=== PATIENT | female | born 1980 | race African-American/Black ===

== ENCOUNTER → 2021-01-03 10:39 | Outpatient (CLI) | payer OTHER, SELFPAY ==
--- NOTE | ~2021-01-03 | US_ITS ---
EXAMINATION: US pelvic complete w TV EXAM DATE: 01/03/2021 13:47 INDICATION: Right lower quadrant pain. TECHNIQUE: Pelvic transabdominal and transvaginal sonogram was performed. There are multiple graysca le and Doppler images available for interpretation. There is no prior study for comparison. FINDINGS: Uterus measures 7.0 x 3.6 x 3.9 cm, with IUD centrally located inside the endometrial cavi ty. Focal posterior myometrial region measuring 1.5 cm, fibroid. Endometrial stripe measures 3 mm, wi thin normal limits. There is no free pelvic fluid. Right adnexa: The ovary measures 1.3 x 1.6 x 1.2 cm and is morphologically normal. Ovarian vascular f low confirmed. Left adnexa: The ovary measures 1.8 x 2.1 x 2.2 cm and is morphologically normal. Ovarian vascular fl ow confirmed. IMPRESSION: Unremarkable pelvic ultrasound exam. Reviewed, dictated and finalized at location A.
--- NOTE | ~2021-01-03 | US_ITS ---
EXAMINATION: US abdomen complete EXAM DATE: 01/03/2021 11:35 INDICATION: Right lower quadrant pain. TECHNIQUE: Multiple grayscale and Doppler images of the complete abdomen were obtained (by a technolo gist who performed the scan) and subsequently reviewed. There is no prior study for comparison. FINDINGS: The abdominal aorta is normal in caliber. Visualized portion IVC is patent. The pancreatic head a nd body are normal in appearance. The pancreatic tail is not visualized. The liver has normal echogenicity and contour. There are no focal liver lesions identified. There is no evidence of intrahepatic biliary duct dilation. Portal venous flow was seen in the hepatopedal , normal direction and has normal Doppler waveform. Common bile duct measures 4 mm, which is normal. The gallbladder wall is normal in thickness, with ex pected amount of distention. No sonographic evidence of pericholecystic fluid. There is no cholelit hiases. Technologist performing exam reports patient did not demonstrate sonographic Martinez's sign. Please note that this sign is less reliable in patients who have received pain medication. Right kidney: There is normal contour and echogenicity. It measures 7.0 x 3.7 x 4.1 centimeters. T here are no focal renal lesions identified. There is no hydronephrosis. Left kidney: There is normal contour and echogenicity. It measures 8.2 x 5.0 x 3.9 centimeters. Th ere are no focal renal lesions identified. There is no hydronephrosis. The spleen measures 7.1 centimeters and is morphologically normal. IMPRESSION: 1. Unremarkable complete abdominal ultrasound exam. Reviewed, dictated and finalized at location A.
== END ==
PROVIDERS: PCP Emergency Medicine; Visit Provider Emergency Medicine
DX: R10.9 Unspecified abdominal pain (principal)
CPT/HCPCS: 76700; 76830; 76856

== ENCOUNTER → 2021-02-06 10:26 | Outpatient (CLI) | payer OTHER, SELFPAY ==
--- NOTE | ~2021-02-06 | XR_ITS ---
XR UGIAC w barium swallow DATE: 02/06/2021 11:54 INDICATION: Gastroesophageal reflux, esophagitis, postprandial cough. Patient has chest pain when eat ing, difficulty getting food to go down, food sticking. Has switched to primarily liquid food. TECHNIQUE: Rapid sequence spot radiographs and fluoroscopy were performed during swallowing. Air cont rast upper gastrointestinal series. DAP: 18.472 Fluoroscopy time: 2.8 minutes 184 images COMPARISON: None FINDINGS: Normal deglutition and esophageal peristalsis. There is a small sliding hiatal hernia with shots kidneys raising, which accounts for the patient's s ymptoms of food sticking. Consider endoscopic visualization and dilatation as clinically appropriate. Mild to moderate gastroesophageal reflux was observed. No stricture, mucosal fold thickening, erosion, ulceration or intraluminal mass lesion of the esophag us, stomach or duodenum is noted otherwise. The proximal small bowel mucosal pattern appears normal. IMPRESSION: Small sliding hiatal hernia with Schatzki's ring, which correlates with the patient's cli nical presentation of difficulty with food sticking Gastroesophageal reflux Reviewed, dictated and finalized at Location A. Reviewed, dictated and finalized at location B. IMPRESSION: Small sliding hiatal hernia with Schatzki's ring, which correlates with the patient's clinical presentation of difficulty with food sticking Gastroesophageal reflux
== END ==
PROVIDERS: PCP Emergency Medicine; Visit Provider Emergency Medicine
DX: K21.9 Gastro-esophageal reflux disease without esophagitis (principal); K44.9 Diaphragmatic hernia without obstruction or gangrene
CPT/HCPCS: 74246

== ENCOUNTER 2021-03-24 02:16 | Day surgery (SDC) | payer OTHER, SELFPAY ==
[2021-03-20 13:09] VITALS: BMI 25.4
[2021-03-24 09:20] VITALS: BP 113/77; PULSE 100; RESP 16; TEMP 36.8; O2SAT 100
[2021-03-24] MEDS: LACTATED RINGERS 1,000 ML 150 ML IV CONT (09:35)
--- NOTE | 2021-03-24 10:07 | WPDANESEPPF ---
Anes - Initial Pre Proc Eval Procedure: Operation Date: 03/24/21 10:00 Proposed Procedures p Esophagogastroduodenoscopy - Faheem Vizcarra MD Date/Time: 03/24/21 10:07 Surgeon: Faheem Vizcarra MD Pre Op Diagnosis: dysphagia, gerd, schatzki ring Patient Data Age: 40 Gender: F Height: 1.52 m Weight: 59 kg Last Vital Signs Temp 98.3 F 03/24/21 09:20 Pulse 100 03/24/21 09:20 Resp 16 03/24/21 09:20 BP 113/77 03/24/21 09:20 Pulse Ox 100 03/24/21 09:20 Allergies Allergy/AdvReac Type Severity Reaction Status Date / Time amoxicillin Allergy Severe THROAT Verified 03/24/21 09:19 SWELLING Home Medications Medication Instructions Recorded Confirmed Type famotidine 20 mg PO HS 03/20/21 03/24/21 History pantoprazole 40 mg PO DAILY 03/20/21 03/24/21 History venlafaxine 150 mg PO DAILY 03/20/21 03/24/21 History Patient hx anesthesia problems: none Family hx anesthesia problems: none [facility] Past Medical History Medical History (Updated 03/24/21 @ 10:05 by Avtar Mora MD) Anxiety Depression Social History Social History Smoking status: Never smoker Alcohol intake: current Substance use: never Substance use type: does not use Living arrangements: with family Spiritual care concerns: No Anes - Eval Final PreProcedure Day of Procedure 03/24/21 10:07 Patient weight: normal Heart: regular rate and rhythm Airway: Mallampati scale class II Neurological: alert and oriented Last oral intake: >/= 8 hours ASA classification: II Emergent: no Anesthetic plan: proceed Anesthesia type and monitoring: general GIVS and standard monitoring Informed Consent: The patient's anesthetic plan and its attendant risks and benefits were discussed with the patient/family/POA. Questions were solicited and answers provided to the satisfaction of the patient/family/POA.
--- NOTE | 2021-03-24 10:12 | PM.HPGS ---
History of Present Illness History of Present Illness Consent: Risks, benefits, and alternatives have been discussed and questions answered. Patient agrees to proceed with procedure. Chief complaint: dysphagia, gerd, schatzki ring Narrative: Lane Miller is a 40 year old female with gerd and mild dysphagia, UGI showed HH and ring, never had egd. She is on ppi and pepcid. Review of Systems Constitutional: Constitutional: Denies headache(s) and Denies weakness Eyes: Eyes: Denies blurry vision ENT: Reports Normal hearing present, Denies headache(s) and Denies neck pain Cardiovascular: Cardiovascular: Denies chest pain and Denies dyspnea Respiratory: Respiratory: Denies dyspnea Gastrointestinal: Gastrointestinal: Reports no additional gastrointestinal complaints Genitourinary: Genitourinary: Denies dysuria Musculoskeletal: Musculoskeletal: Denies neck pain Integumentary/Breasts: Skin/Breast: Denies dry skin Neurologic: Reports Normal hearing present, Denies headache(s) and Denies weakness Psychiatric: Psychiatric: Denies anxiety Endocrine: Endocrine: Denies change in body appearance Hematologic/Lymphatic: Hematologic/Lymphatic: Denies easy bleeding Allergic/Immunologic: Allergic/Immunologic: Denies urticaria [facility] Past Medical History Medical History (Updated 03/24/21 @ 10:13 by Faheem Vizcarra MD) Anxiety Depression Esophageal ring GERD (gastroesophageal reflux disease) Social History Social History Smoking status: Never smoker Alcohol intake: current Substance use: never Substance use type: does not use Living arrangements: with family Spiritual care concerns: No Meds Home Medications and Allergies Home Medications Medication Instructions Recorded Confirmed Type famotidine 20 mg PO HS 03/20/21 03/24/21 History pantoprazole 40 mg PO DAILY 03/20/21 03/24/21 History venlafaxine 150 mg PO DAILY 03/20/21 03/24/21 History Allergies Allergy/AdvReac Type Severity Reaction Status Date / Time amoxicillin Allergy Severe THROAT Verified 03/24/21 09:19 SWELLING Vital Signs Vital Signs - 24 hr 03/24/21 09:20 Temperature 98.3 F Pulse Rate 100 Respiratory Rate 16 Blood Pressure 113/77 Pulse Oximetry 100 Exam Const: General: comfortable and no acute distress HENMT: General nose exam: Normal nares present Eyes: General: appearance normal, both eyes and all related structures Neck: Neck: no JVD Resp: Auscultation: clear to auscultation bilaterally Cardio: Rate: regular rate Rhythm: regular rhythm GI: Inspection: non-distended GI Palp: Yes Soft to palpation Skin: General skin exam: normal color Neuro: General: gait normal Speech: normal speech Extrem: General: normal to inspection Psych: Mental Status: mental status grossly normal Assessment and Plan Assessment and plan (1) GERD (gastroesophageal reflux disease): Code(s): K21.9 - Gastro-esophageal reflux disease without esophagitis Status: Acute Assessment and Plan: egd, already on meds (2) Esophageal ring: Code(s): K22.2 - Esophageal obstruction Status: Acute Assessment and Plan: found during recent UGI, may need dilation with egd
[2021-03-24 10:44] VITALS: BP 97/64; PULSE 96; RESP 30; O2SAT 100
[2021-03-24 10:54] VITALS: BP 97/67; PULSE 92; RESP 21; O2SAT 100
[2021-03-24 11:04] VITALS: BP 115/60; PULSE 96; RESP 22; O2SAT 100
== END 2021-03-24 10:46 | disposition home or self-care (01) ==
PROVIDERS: PCP Emergency Medicine; Visit Provider Internal Medicine Gastroenterology
PROC: 0DJ08ZZ Inspection of Upper Intestinal Tract, Via Natural or Artificial Opening Endoscopic (ICD-10-PCS; CPT 43235; principal; 2021-03-24 10:00)
DX: K21.00 Gastro-esophageal reflux disease with esophagitis, without bleeding (principal); K22.2 Esophageal obstruction; K44.9 Diaphragmatic hernia without obstruction or gangrene; F41.8 Other specified anxiety disorders; K29.50 Unspecified chronic gastritis without bleeding
CPT/HCPCS: 43239; 43249; 88305; J2704; J7120